=== PATIENT | female | born 1955 | race Native Hawaiian/Other Pacific Islander ===

== ENCOUNTER 2017-04-06 14:11 | Outpatient (CLI) | payer OTHER | END 2017-04-06 19:20 | disposition home or self-care (01) | LOC: MAMMO 14:11 | DX: Z12.31 Encounter for screening mammogram for malignant neoplasm of breast (principal) ==

== ENCOUNTER 2018-05-06 09:06 | Day surgery (SDC) | payer OTHER | END 2018-05-06 12:15 | disposition home or self-care (01) | LOC: OR 09:06 | PROC: 08RK3JZ Replacement of Left Lens with Synthetic Substitute, Percutaneous Approach (ICD-10-PCS; principal; 2018-05-06) | DX: H25.812 Combined forms of age-related cataract, left eye (principal) | CPT/HCPCS: 66984; V2632 ==

== ENCOUNTER 2019-03-05 07:17 | Outpatient (CLI) | payer OTHER ==
[2019-03-05 08:05] LABS: POTASSIUM 4.6 mmol/L (3.6-5.2)
[2019-03-05 08:57] LABS: PLATELET COUNT 252 K/uL (152-353)
== END 2019-03-05 21:35 | disposition home or self-care (01) ==
LOC: MRI 07:17
PROVIDERS: Internal Medicine
DX: R51 Headache (principal)
CPT/HCPCS: 36415; 80053; 85027; 85651; A9576

== ENCOUNTER 2020-12-08 09:20 | Outpatient (CLI) | payer OTHER | END 2020-12-08 18:57 | disposition home or self-care (01) | LOC: LAB 09:20 | PROVIDERS: ATTEND Internal Medicine | DX: U07.1 COVID-19 (principal); Z20.822 Contact with and (suspected) exposure to COVID-19 | CPT/HCPCS: 87635; G2023; U0003 ==

== ENCOUNTER 2020-12-13 11:12 | Outpatient (CLI) | payer OTHER ==
[~2020-12-13] VITALS: Ht 170.2 cm; Wt 93.4 kg
== END 2020-12-13 19:11 | disposition home or self-care (01) ==
LOC: INF 11:12
PROVIDERS: ATTEND Internal Medicine
DX: Z23 Encounter for immunization (principal); U07.1 COVID-19
CPT/HCPCS: 96365; M0244

== ENCOUNTER 2022-06-01 12:57 | Outpatient (CLI) | payer OTHER, MEDICARE ==
[2022-06-01 13:12] LABS: PLATELET COUNT 210 K/uL (152-353)
[2022-06-01 13:43] LABS: POTASSIUM 4.5 mmol/L (3.6-5.2)
== END 2022-06-01 21:46 | disposition home or self-care (01) ==
LOC: LAB 12:57
PROVIDERS: ATTEND Internal Medicine
DX: E03.8 Other specified hypothyroidism (principal)
CPT/HCPCS: 80053; 80061; 81002; 84439; 84443; 85027

== ENCOUNTER 2022-06-14 09:28 | Outpatient (CLI) | payer OTHER, MEDICARE | END 2022-06-14 18:56 | disposition home or self-care (01) | LOC: MAMMO 09:28 | PROVIDERS: ATTEND Internal Medicine | DX: Z12.31 Encounter for screening mammogram for malignant neoplasm of breast (principal) ==